=== PATIENT | male | born 1960 | race Caucasian/White ===

== ENCOUNTER 2022-02-06 00:41 | Day surgery (SDC) | payer OTHER, SELFPAY ==
[2022-02-02 12:15] VITALS: BMI 26.6
--- NOTE | 2022-02-05 17:02 | PM.HPGS ---
History of Present Illness History of Present Illness Consent: Risks, benefits, and alternatives have been discussed and questions answered. Patient agrees to proceed with procedure. Chief complaint: family hx of colon ca, neoplasm screening Narrative: Aiden Montgomery is a 61 year old male referred for colon cancer screening. His last examination was 5 years ago. His father had colon cancer when he was in his 60s. Review of Systems Review of Systems: All systems reviewed & are unremarkable except as noted in HPI and below PMFSH Past Medical History Medical History Family history of colon cancer Hyperlipidemia Hypertension Social History Social History Smoking status: Former smoker Tobacco type: cigarettes Alcohol intake: current Drinks per week: 3 Substance use: never Living arrangements: with family Gender identity (if verbalized by the patient): Male Sexual Orientation (if Verbalized by the Patient): Straight or Heterosexual Spiritual care concerns: No Agree to blood products: Yes Meds Home Medications and Allergies Home Medications Medication Instructions Recorded Confirmed Type candesartan 4 mg tablet 4 mg PO DAILY #90 tablet 12/09/21 02/06/22 Rx simvastatin 20 mg PO DAILY 02/02/22 02/06/22 History Allergies Allergy/AdvReac Type Severity Reaction Status Date / Time No Known Allergies Allergy Verified 02/06/22 07:39 Exam Resp: Auscultation: clear to auscultation bilaterally Cardio: Rate: regular rate Rhythm: regular rhythm GI: GI Palp: Yes Soft to palpation and No Tenderness to palpation present (GI) Assessment and Plan Assessment and plan (1) Colon cancer screening: Code(s): Z12.11 - Encounter for screening for malignant neoplasm of colon Status: Acute Assessment and Plan: Colonoscopy with possible biopsy or polypectomy or cautery or injection of substances.
[2022-02-06 07:40] VITALS: BP 121/86; PULSE 91; RESP 17; TEMP 36.8; O2SAT 98; BMI 27.3
[2022-02-06] MEDS: LACTATED RINGERS 1,000 ML 150 ML IV CONT (07:42)
--- NOTE | 2022-02-06 08:12 | WPDANESEPPF ---
Anes - Initial Pre Proc Eval Procedure: Operation Date: 02/06/22 09:00 Proposed Procedures p Screening Colonoscopy - Marco Mendes MD Date/Time: 02/06/22 08:12 Surgeon: Marco Mendes MD Pre Op Diagnosis: family hx of colon ca, neoplasm screening Patient Data Age: 61 Gender: M Height: 1.75 m Weight: 84 kg Last Vital Signs Temp 36.8 C 02/06/22 07:40 Pulse 91 02/06/22 07:40 Resp 17 02/06/22 07:40 BP 121/86 02/06/22 07:40 Pulse Ox 98 02/06/22 07:40 Allergies Allergy/AdvReac Type Severity Reaction Status Date / Time No Known Allergies Allergy Verified 02/06/22 07:39 Home Medications Medication Instructions Recorded Confirmed Type candesartan 4 mg tablet 4 mg PO DAILY #90 tablet 12/09/21 02/06/22 Rx simvastatin 20 mg PO DAILY 02/02/22 02/06/22 History Patient hx anesthesia problems: none Family hx anesthesia problems: none Results Review: All pre-operative results and documents have been reviewed as part of the pre-operative evaluation. [facility] Past Medical History Medical History Family history of colon cancer Hyperlipidemia Hypertension Social History Social History Smoking status: Former smoker Tobacco type: cigarettes Alcohol intake: current Drinks per week: 3 Substance use: never Living arrangements: with family Gender identity (if verbalized by the patient): Male Sexual Orientation (if Verbalized by the Patient): Straight or Heterosexual Spiritual care concerns: No Agree to blood products: Yes Anes - Eval Final PreProcedure Day of Procedure 02/06/22 08:12 Patient weight: overweight Heart: regular rate and rhythm Lungs: clear to auscultation Airway: Mallampati scale class II Neurological: alert and oriented Last oral intake: >/= 8 hours ASA classification: III Emergent: no Anesthetic plan: proceed Anesthesia type and monitoring: general GIVS and standard monitoring Results Review: All pre-operative results and documents have been reviewed as part of the pre-operative evaluation. Informed Consent: The patient's anesthetic plan and its attendant risks and benefits were discussed with the patient/family/POA. Questions were solicited and answers provided to the satisfaction of the patient/family/POA.
[2022-02-06 09:07] VITALS: BP 96/66; PULSE 74; RESP 19; O2SAT 96
[2022-02-06 09:17] VITALS: BP 99/68; PULSE 65; RESP 14; O2SAT 97
[2022-02-06 09:27] VITALS: BP 121/85; PULSE 64; RESP 20; O2SAT 97
== END 2022-02-06 09:36 | disposition home or self-care (01) ==
PROVIDERS: PCP Family Medicine; Visit Provider Internal Medicine Gastroenterology
PROC: 0DJD8ZZ Inspection of Lower Intestinal Tract, Via Natural or Artificial Opening Endoscopic (ICD-10-PCS; CPT 45378; principal; 2022-02-06 09:00)
DX: Z12.11 Encounter for screening for malignant neoplasm of colon (principal); K64.8 Other hemorrhoids; Z80.0 Family history of malignant neoplasm of digestive organs; I10 Essential (primary) hypertension; E78.5 Hyperlipidemia, unspecified; Z87.891 Personal history of nicotine dependence
CPT/HCPCS: 45378; J2001; J2704; J7120

== ENCOUNTER 2022-03-03 16:08 | Outpatient (CLI) | payer OTHER, SELFPAY ==
--- NOTE | ~2022-03-03 | XR_ITS ---
EXAMINATION: XR lumbar spine 2-3V DATE: 03/03/2022 16:34 INDICATION: Low back pain TECHNIQUE: Anteroposterior and lateral views of the lumbar spine, and cone-down lateral view of the l umbosacral junction were obtained. COMPARISON: None. FINDINGS: There is no fracture, dislocation, or subluxation. The vertebral body heights and intervert ebral disc space are maintained Small degenerative osteophytes project from the anterior endplates of multiple vertebral bodies. Calcified atherosclerosis is noted. IMPRESSION: 1. Mild lumbar spondylosis without acute findings. Reviewed, dictated and finalized at location A.
== END 2022-03-03 16:09 | disposition home or self-care (01) ==
LOC: ANHIMG 16:10
PROVIDERS: PCP Family Medicine; Visit Provider Family Medicine
DX: M47.896 Other spondylosis, lumbar region (principal)
CPT/HCPCS: 72100

== ENCOUNTER 2022-04-13 09:00 | Outpatient (RCR) | payer OTHER, SELFPAY ==
--- NOTE | 2022-03-09 09:10 | PTOPEVAL ---
PHYSICAL THERAPY INITIAL EVALUATION. Thank you for referring Aiden Montgomery to [facility] [place] The patient is scheduled to be seen for therapy? 2x/week for 4 weeks. Please review, sign, date and return this plan of care AWILDA. I agree with and certify that the following plan of care is medically necessary. Referring Physician Date Attending Provider: Cherelle Bennett DO *PT Outpatient Evaluation Start: 03/09/22 Evaluation Information Diagnosis Low back pain Onset 6 weeks Subjective Information Pt states he is having low Query Text:As Reported By Patient/ back pain that he is sure is Family sciatica. He states the muscles in his low back feel really tight and his gets numbness down his right leg. He states the sharp pains have subsided. He has tried multiple pain modalities without much relief. Pt is unlimited in the time he sits. He is most limited when bending over and lifting. Pain Assessment Lower Back Reported Pain Level 5 Pain Description Shooting,Tightness Pain Radiation Right Leg Pain Frequency Acute,Intermittent Lowest Pain Intensity 3 Greatest Pain Intensity 7 Pain Aggravating Factors Bending,Lifting Pain Relief Interventions Used By Heat,Ice,TENS Patient Lumbar ROM Lumbar Flexion (0-90) 30 Lumbar Flexion Active Mid Tian Lumbar Extension (0-40) 0 Lateral Flexion B lateral flexion able to Query Text:Active Hands to: achieve lateral knee joint line Lateral Rotation Right (0-45) 40 Lateral Rotation Left (0-45) 40 Lumbar ROM 50% of Normal Normal Lumbar Segmental Motion No Lumbar Comments Repeated flexion Lower Extremity Range of Motion General Lower Extremity Range of Motion WFL/Left,WFL/Right Lower Extremity Muscle Strength Testing General Lower Extremity Strength WFL/Left,WFL/Right Gross Lower Extremity Strength B LE grossly 5/5 B glute med 4-/5 Muscle Length Testing Two-Joint Hip Flexor Shortened Muscles Short (R) Rectus Femoris,Short (L) Rectus Femoris Piriformis w/Hip Flexion >90 Degrees (R) Mild Tightness,(L) Mild Tightness Left Hamstring Length -45 Right Hamstring Length -40 Posture Posture Evaluation View Posterior Thoracic Spine Posture Flattened
--- NOTE | 2022-03-23 13:00 | PTOPEVAL ---
PHYSICAL THERAPY PROGRESS REPORT. Thank you for referring Aiden Montgomery to [facility] [place].? The patient is scheduled to be seen in 1 month. Please review, sign, date and return this plan of care AWILDA. I agree with and certify that the following plan of care is medically necessary. Referring Physician Date Attending Provider: Cherelle Bennett DO Evaluation Information Diagnosis Low back pain Onset 6 weeks Subjective Information Pt states his back is now Query Text:As Reported By Patient/ localized to his lower back. Family He states he continues to have numbness into his legs. He states he can stand/slow walk for about 15-20 minutes before the numbness in his legs gets pretty intense. He declines less stabbing shocking pain. He states the numbness is his biggest concern. Pain Assessment Self Report Pain Assessment Lower Back Reported Pain Level 2 Pain Description Numbness,Soreness,Tightness, With Movement Pain Radiation Right Leg Greatest Pain Intensity 2 Cervical and Lumbar ROM Lumbar ROM Lumbar Flexion (0-90) 45 Lumbar Flexion Active Mid Tian,Ankle Lumbar Extension (0-40) 0 Lateral Flexion B lateral flexion able to Query Text:Active Hands to: achieve lateral knee joint line Lateral Rotation Right (0-45) 45 Lateral Rotation Left (0-45) 45 Lumbar ROM 50% of Normal Normal Lumbar Segmental Motion No Lumbar Comments Repeated flexion decreases symptoms Lower Extremity Range of Motion General Lower Extremity Range of Motion WFL/Left,WFL/Right Lower Extremity Muscle Strength Testing General Lower Extremity Strength WFL/Left,WFL/Right Gross Lower Extremity Strength B LE grossly 5/5 B glute med 4-/5 Muscle Length Testing Two-Joint Hip Flexor Shortened Muscles Short (R) Rectus Femoris,Short (L) Rectus Femoris Piriformis w/Hip Flexion >90 Degrees (R) Mild Tightness,(L) Mild Tightness Left Hamstring Length -35 Right Hamstring Length -35 Posture Posture Evaluation View Posterior Thoracic Spine Posture Flattened Lumbar Spine Posture Flattened Knee Posture (L) Genu Varus,(R) Genu Varus Palpation Assessment Palpation none reported Gait Assessment Other Gait Observations guarded gait, no trunk
--- NOTE | 2022-04-13 09:52 | PTOPEVAL ---
PHYSICAL THERAPY PROGRESS REPORT AND DISCHARGE SUMMARY. Thank you for referring Aiden Montgomery to [facility].? The patient is to be discharged from skilled physical therapy services at this time. Please review, sign, date and return this plan of care AWILDA. I agree with and certify that the following plan of care is medically necessary. Referring Physician Date Attending Provider: Cherelle Bennett, Evaluation Information Diagnosis Low back pain Onset 6 weeks Subjective Information Pt states when initially Query Text:As Reported By Patient/ starting therapy he was Family initially able to walk about 100 steps before he was limited by pain and needed to stop. Now, he is able to walk 1200 steps before his legs start to go numb, but at this point is still pain free. He states he has only had pain 2- 3 times in the last 2 weeks. Pain Assessment Self Report Self Report Pain Level 0 Lumbar ROM Lumbar Flexion (0-90) 60 Lumbar Flexion Active Ankle Lumbar Extension (0-40) 15* Lateral Flexion B lateral flexion able to Query Text:Active Hands to: achieve lateral knee joint line Lateral Rotation Right (0-45) 45 Lateral Rotation Left (0-45) 45 Lumbar ROM 75% of Normal Normal Lumbar Segmental Motion No Lumbar Comments Repeated flexion decreases symptoms Lower Extremity Range of Motion General Lower Extremity Range of Motion WFL/Left,WFL/Right Lower Extremity Muscle Strength Testing General Lower Extremity Strength WFL/Left,WFL/Right Gross Lower Extremity Strength B LE grossly 5/5 B glute med 4+/5 Muscle Length Testing Two-Joint Hip Flexor Shortened Muscles Short (R) Rectus Femoris,Short (L) Rectus Femoris Piriformis w/Hip Flexion >90 Degrees (R) Mild Tightness,(L) Mild Tightness Left Hamstring Length -30 Right Hamstring Length -30 Posture Thoracic Spine Posture Flattened Lumbar Spine Posture Flattened Knee Posture (L) Genu Varus,(R) Genu Varus Palpation Assessment Palpation Palpation none reported Special Test-Spine Crossed Straight Leg Raise Test Negative Right,Negative Left Slump Test Negative Right,Negative Left Gait Assessment Other Gait Observations minimal trunk rotation, minimal arm swing General Exercise General Exercises Exercise Description - reviewed and consolidate HEP
== END 2022-04-21 14:13 | disposition home or self-care (01) ==
LOC: ANHHIPT 09:00
PROVIDERS: PCP Family Medicine; Visit Provider Family Medicine
DX: M54.50 Low back pain, unspecified (principal)
CPT/HCPCS: 97110; 97112; 97140; 97161; 97530

== ENCOUNTER 2025-01-30 11:16 | Outpatient (CLI) | payer OTHER, SELFPAY ==
--- NOTE | 2025-01-30 11:23 | EST_ITS ---
Patient Info Name: Aiden Montgomery Age: 64 years : 1960 Gender: Male Ht: 68 in Wt: 180 lbs BSA: 2.00 m2 HR: 55 bpm BP: 138 / 76 mmHg Exam Date: 01/30/2025 11:38 AM Exam Location: [facility] Patient Status: Outpatient Admit Date: 01/30/2025 Staff Ordering Physician: Bethany Dee PA-C Attending Provider: Bethany Dee PA-C Exercise Technologist: ramesh barrientos Exercise Physician: Cyril Fisher DO Exam Type: CA stress test treadmill Study Info Indications R07.9 - Chest pain, unspecified A treadmill exercise stress test was performed. Summary 1. 1. Abnormal James exercise stress test for ischemic ST changes by ECG criteria. 2. 2. Reduced functional capacity, achieving 7 METs of workload. 3. 3. Hypertensive response to exercise. 4. 4. Appropriate HR response to exercise. 5. 5. Appropriate HR recovery at 1 minute post exercise. 6. 6. No imaging with stress testing. 7. 7. Patient informed of the above results. Protocol: James Stress ECG Details Stage: REST Duration (min): 0 min : 32 sec Speed (mph): 0.0 Grade (%): 0 HR (bpm): 55 SBP (mmHg): --- DBP (mmHg): --- METS: --- Stage: REST Duration (min): 5 min : 55 sec Speed (mph): 0.0 Grade (%): 0 HR (bpm): 55 SBP (mmHg): 203 DBP (mmHg): 71 METS: --- Stage: REST Duration (min): 6 min : 43 sec Speed (mph): 0.0 Grade (%): 0 HR (bpm): 54 SBP (mmHg): 138 DBP (mmHg): 76 METS: --- Stage: REST Duration (min): 13 min : 45 sec Speed (mph): 0.0 Grade (%): 0 HR (bpm): 62 SBP (mmHg): 138 DBP (mmHg): 76 METS: --- Stage: STAGE 1 Duration (min): 1 min : 0 sec Speed (mph): 1.7 Grade (%): 10 HR (bpm): 99 SBP (mmHg): 138 DBP (mmHg): 76 METS: --- Stage: STAGE 1 Duration (min): 2 min : 0 sec Speed (mph): 1.7 Grade (%): 10 HR (bpm): 112 SBP (mmHg): 138 DBP (mmHg): 76 METS: --- Stage: STAGE 1 Duration (min): 3 min : 0 sec Speed (mph): 1.7 Grade (%): 10 HR (bpm): 121 SBP (mmHg): 192 DBP (mmHg): 88 METS: --- Stage: STAGE 2 Duration (min): 1 min : 0 sec Speed (mph): 2.5 Grade (%): 12 HR (bpm): 132 SBP (mmHg): 192 DBP (mmHg): 88 METS: --- Stage: STAGE 2 Duration (min): 2 min : 0 sec Speed (mph): 2.5 Grade (%): 12 HR (bpm): 144 SBP (mmHg): 205 DBP (mmHg): 88 METS: --- Stage: STAGE 2 Duration (min): 2 min : 59 sec Speed (mph): 3.4 Grade (%): 14 HR (bpm): 149 SBP (mmHg): 205 DBP (mmHg): 88 METS: --- Stage: RECOVERY Duration (min): 1 min : 0 sec Speed (mph): 0.0 Grade (%): 0 HR (bpm): 120 SBP (mmHg): 215 DBP (mmHg): 73 METS: --- Stage: RECOVERY Duration (min): 2 min : 0 sec Speed (mph): 0.0 Grade (%): 0 HR (bpm): 91 SBP (mmHg): 215 DBP (mmHg): 73 METS: --- Stage: RECOVERY Duration (min): 3 min : 0 sec Speed (mph): 0.0 Grade (%): 0 HR (bpm): 81 SBP (mmHg): 198 DBP (mmHg): 76 METS: --- Stage: RECOVERY Duration (min): 3 min : 46 sec Speed (mph): 0.0 Grade (%): 0 HR (bpm): 80 SBP (mmHg): 198 DBP (mmHg): 76 METS: --- Rest HR: 62 bpm Peak HR: 149 bpm Rest Sys BP: 138 mmHg Peak Sys BP: 215 mmHg Max Pred HR: 157 bpm % Max Pred HR: 95 % Target HR: 133 bpm Max RPP: 32,035 bpm*mmHg Mcguire Score: -7 BP Response: Patient exhibited a hypertensive response with stress Termination Reason: Reached target heart rate or workload Cardiac Symptoms: Shortness of breath Max ST Seg Deviation: -2.60 mm Total Time: 6 min : 0 sec Rest Esteves BP: 76 mmHg Peak Esteves BP: 73 mmHg Angina Score: None Total METS: 7.1 Resting ECG Sinus rhythm. Stress ECG [address] depression in inferior leads and V3-V6. Arrhythmias 1 ventricular triplet. Report Signatures
--- OUTSIDE RECORDS SUMMARY | 2025-01-30 12:44 | XMS_ITS | Continuity of Care Document ---
Author Name [facility] Organization [facility] Care Team Providers [facility] Name Role Phone [facility] Unavailable Unavailable Social History Combined list of available smoking, tobacco, and other social history from [facility] and [facility] facilities. Social History Type Response Date Comment Source Tobacco smoking status NHIS CURRENT NON-TOBACCO USER-HX OF USE 07/19/2001 PT REPORTS HE QUIT SMOKING 6DAYS AGO. PT HAS A HX OF SMOKING 1PKG/DAY X 15 YRS. PT QUIT AT ONE POINT FOR 5 YRS THEN RESUME SMOKING. [facility]
--- OUTSIDE RECORDS SUMMARY | 2025-01-30 12:44 | XMS_ITS | Clinical Summary ---
Author Organization [facility] Address [facility] [place] [address] Care Team Providers Care Water Pollution Specialist Name Role Phone Non-Staff, Provider Primary Care Provider Rose lable Allergies No known active allergies Medications No known medications Encounters Date Type Department Care Team Description 01/24/2025 Telephone [facility], [address] [address] Bethany Dee PA-C Appointment Request 12/21/2024 3:46 PM INTERNAL AUDIT MANAGER - 12/21/2024 6:43 PM INTERNAL AUDIT MANAGER Emergency [facility] [place] [address] Nile Seaman MD Chest Pain Discharge Disposition: Home or Self Care (Routine Discharge) 12/21/2024 Travel from Last 3 Months Social History Tobacco Use Types Packs/Day Years Used Date Smoking Tobacco: Never Assessed Sex and Gender Information Value Date Recorded Sex Assigned at Male 12/21/2024 2:49 PM INTERNAL AUDIT MANAGER Legal Sex Male 1:00 PM INTERNAL AUDIT MANAGER Gender Identity Not on file Sexual Orientation Not on file Last Filed Vital Signs Vital Sign Reading Time Taken Comments Blood Pressure 148/88 12/21/2024 6:30 PM INTERNAL AUDIT MANAGER Pulse 57 12/21/2024 6:30 PM INTERNAL AUDIT MANAGER Temperature 36.7 C (98 F) 12/21/2024 2:45 PM INTERNAL AUDIT MANAGER Respiratory Rate 18 12/21/2024 6:30 PM INTERNAL AUDIT MANAGER Oxygen Saturation 98% 12/21/2024 6:30 PM INTERNAL AUDIT MANAGER Inhaled Oxygen Concentration - - Weight 81.6 kg (180 lb) 12/21/2024 2:45 PM INTERNAL AUDIT MANAGER Height 170.2 cm (5' 7 ) 12/21/2024 2:45 PM INTERNAL AUDIT MANAGER Body Mass Index 28.19 12/21/2024 2:45 PM INTERNAL AUDIT MANAGER Plan of Treatment Health Maintenance Due Date Last Done Comments Colorectal Cancer Screening Colonoscopy (10 Years) 1961 Annual Physical 1964 DTaP, Tdap and Td Vaccines ( 1 - Tdap) 1980 Zoster Vaccines (1 of 2) 2011 COVID-19 Vaccine (2 - 2023-2 5 season) 2024 10/10/2021 RSV Immunization or 60+ Years (1 - 1-dose 75+ series) 2036 Hepatitis C Completed 01/07/2022 Meningococcal B Vaccine Aged Out No l onger eligible based on patient's age to complete this topic Meningococcal Vaccine Aged Out No aby xochilt eligible based on patient's age to complete this topic Pneumococcal Vaccine: Pediat rics (0 to 5 Years) and At-Risk Patients (6 to 64 Years) Aged Out No longer eligi ble based on patient's age to complete this topic RSV Immunizations Under 20 Months Aged Out No longer eligible based on patient's age to complete this topic Procedures Procedure Name Priority Date/Time Associated Diagnosis Comments TROPONIN, QUANT STAT 12/21/2024 5:17 PM INTERNAL AUDIT MANAGER ECG 12-LEAD STAT 12/21/2024 5:13 PM INTERNAL AUDIT MANAGER XR CHEST PORTABLE STAT 12/21/2024 3:1 0 PM INTERNAL AUDIT MANAGER D-DIMER, QUANTITATIVE STAT 12/21/2024 2:46 PM INTERNAL AUDIT MANAGER TROPONIN, QUANT STAT 12/21/2024 2:46 PM INTERNAL AUDIT MANAGER COMPREHENSIVE METABOLIC PANEL STAT 12/21/2024 2:46 PM INTERNAL AUDIT MANAGER CBC W/DIFF AUTOMATED STAT 12/21/2024 2:46 PM INTERNAL AUDIT MANAGER ECG 12-LEAD Routine 12/21/2024 2:39 PM INTERNAL AUDIT MANAGER HC EIA QL HEPATITIS ABC B AG Routine 01/07/2022 1:38 PM INTERNAL AUDIT MANAGER Abnormal results of liver function studies from Last 3 Months or Most Recently Relevant to Health Maintenance Results * TROPONIN, QUANT (12/21/2024 5:17 PM INTERNAL AUDIT MANAGER) Only the most recent of2 resultswithin the time period is included. TROPONIN I HIGH SENSITIVITY 5 <79 ng/L 12/21/2024 5:47 PM INTERNAL AUDIT MANAGER [facility] Comment: HIGH DOSES OF BIOTIN, TROPONIN-SPECIFIC AUTOANTIBODIES, AND ANTIBODY THERAPY CONTAINING HAMA MAY INTERFERE WITH THIS TEST RESULT. CORRELATION TO CLINICAL HISTORY AND PRESENTATION RECOMMENDED. 12/21/2024 5:17 PM INTERNAL AUDIT MANAGER Nile Seaman MD LABORATORY Final Result [facility] [address] [place] [address], * ECG 12 lead (12/21/2024 5:13 PM INTERNAL AUDIT MANAGER) Only the most recent of2 resultswithin the time period is included. 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 : 1960 Requested By: NILE SEAMAN Order Number: [id number] Uma MD: Cheikh Gray Measurements Intervals Edgar Rate: 54 P: -13 WY: 161 QRS: 18 QRSD: 89 T: 32 QT: 407 QTc: 387 Interpretive Statements SINUS BRADYCARDIA Compared to ECG 12/21/2024 14:39:23 Sinus rhythm no longer present RNAL AUDIT MANAGER Procedure Note Cheikh Gray MD - 12/22/[address] Test Date: 2024-12-21 Pat Name: AIDEN MONTGOMERY Department: 41 Room: 404A 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: [id number] : 1960 Requested By: NILE SEAMAN Order Number: [id number] Reading MD: Cheikh Gray Measurements Intervals Edgar Rate: 54 P: -13 WY: 161 QRS: 18 QRSD: 89 T: 32 QT: 407 QTc: 387 Interpretive Statements SINUS BRADYCARDIA Compared to ECG 12/21/2024 14:39:23 Sinus rhythm no longer present RNAL AUDIT MANAGER Nile Seaman MD ECG ORDERABLES Final Result Performing Organization Address City/State/[facility] Co de Phone Number [facility] * XR CHEST PORTABLE (12/21/2024 3:10 PM INTERNAL AUDIT MANAGER) Anatomical Region Laterality Modality Chest Radiographic Mariana ging 12/21/2024 3:13 PM INTERNAL AUDIT MANAGER Impressions 12/21/2024 3:16 PM INTERNAL AUDIT MANAGER Impression: No acute findings. Referred By: Interpreted By: Malcom Mcgovern MD, 12/21/2024 3:13 PM Narrative 12/21/2024 3:16 PM INTERNAL AUDIT MANAGER [address] [address] Examination: Chest 1 view portable History: Chest pain DATE/TIME: 12/21/2024 2:44 PM Comparison: None Technique: AP upright portable view of the chest was obtained. Findings: Heart size, mediastinal contours and pulmonary vasculature are within normal limits. No pulmonary consolidation, pleural effusion or pneumothorax. No acute osseous abnormality. Procedure Note Malcom Mcgovern MD - 12/21/[address] [address] Examination: Chest 1 view portable History: Chest pain DATE/TIME: 12/21/2024 2:44 PM Comparison: None Technique: AP upright portable view of the chest was obtained. Findings: Heart size, mediastinal contours and pulmonary vasculature arewithin normal limits. No pulmonary consolidation, pleural effusion orpneumothorax. No acute osseous abnormality. Impression: No acute findings. Referred By: Interpreted By: Malcom Mcgovern MD, 12/21/2024 3:13 PM [facility] Final Resul t * (ABNORMAL) COMPREHENSIVE METABOLIC PANEL (12/21/2024 2:46 PM INTERNAL AUDIT MANAGER) GLUCOSE 87 70 - 99 MG/DL 12/21/2024 3:26 PM INTERNAL AUDIT MANAGER [facility] BUN 11 7 - 18 MG/DL 12/21/2024 3:26 PM INTERNAL AUDIT MANAGER [facility] CREATININE S/P/B 0.84 0.7 - 1.3 MG/DL 12/21/2024 3:26 PM INTERNAL AUDIT MANAGER [facility] SODIUM S/P/B 136 136 - 145 MMOL/L 12/21/2024 3:26 PM INTERNAL AUDIT MANAGER [facility] POTASSIUM S/P/B 4.0 3.5 - 5.1 MMOL/L 12/21/2024 3:26 PM INTERNAL AUDIT MANAGER [facility] CHLORIDE S/P/B 102 97 - 115 MMOL/L 12/21/2024 3:26 PM INTERNAL AUDIT MANAGER [facility] CO2 31.0 21 - 32 MMOL/L 12/21/2024 3:26 PM INTERNAL AUDIT MANAGER [facility] CALCIUM S/P/B 9.3 8.5 - 10.1 MG/DL 12/21/2024 3:26 PM [facility] BILIRUBIN TOTAL S/P/B 0.6 0.2 - 1.2 MG/DL 12/21/2024 3:26 PM [facility] Comment: THIS ASSAY IS NOT RECOMMENDED FOR PATIENTS UNDERGOING TREATMENT WITH ELTROMBOPAG DUE TO THE POTENTIAL FOR FALSELY ELEVATED RESULTS. TOTAL PROTEIN S/P/B 7.4 6.4 - 8.2 G/DL 12/21/2024 3:26 PM [facility] ALBUMIN S/P/B 4.0 3.4 - 5.0 G/DL 12/21/2024 3:26 PM [facility] AST 29 15 - 37 U/L 12/21/2024 3:26 PM [facility] ALT 76(H) 16 - 60 U/L 12/21/2024 3:26 PM [facility] ALKALINE PHOSPHATASE S/P/B 54 50 - 136 U/L 12/21/2024 3:26 PM [facility] ANION GAP 3.0 2 - 10 MMOL/L 12/21/2024 3:26 PM [facility] BUN CREATININE RATIO 13.1 6 - 26 12/21/2024 3:26 PM [facility] A/G RATIO 1.2 1.0 - 2.0 RATIO 12/21/2024 3:26 PM [facility] GFR ESTIMATE >90 >90 ML/MIN/1.7 3 M2 12/21/2024 3:26 PM [facility] Comment: NOTE: eGFR is not calculated for patients <18 years of age or gender unknown. This is an estimated GFR calculation using the new CKD EPI creatinine equation without race and so does not require a correction factor for race. This estimated GFR should not be used for calculating drug doses. 12/21/2024 2:46 PM INTERNAL AUDIT MANAGER [facility] Final Resul t [facility] [address] [place] [address], [place] [phone] * D-DIMER, QUANTITATIVE (12/21/2024 2:46 PM INTERNAL AUDIT MANAGER) Pathologist [facility] D-DIMER 356 0 - 500 ng{FEU}/mL 12/21/2024 3:25 PM INTERNAL AUDIT MANAGER [facility] Comment: D-Dimer values less than or equal to 500 ng/mL FEU have a negative predictive value of >95% for exclusion of deep vein thrombosis and pulmonary embolism. In patients over 50 (who tend to have higher normal baseline D-Dimer values), recent studies suggest age-adjusted D-Dimer cutoff values (calculated as: age [years] x 10 ng/mL) result in equivalent outcomes and no additional false negative findings. 12/21/2024 2:46 PM INTERNAL AUDIT MANAGER Wis[facility] Final Resul t Performing Organization Address [facility] Co de Phone Number [facility] [address] [place] [address], [place] [phone] * CBC W/DIFF AUTOMATED (12/21/2024 2:46 PM INTERNAL AUDIT MANAGER) Pathologist [facility] WBC 5.83 4.5 - 11.0 x10'3/uL 12/21/2024 3:00 PM INTERNAL AUDIT MANAGER [facility] RBC 5.09 4.70 - 6.10 x10'6/uL 12/21/2024 3:00 PM INTERNAL AUDIT MANAGER [facility] HGB 15.3 14.0 - 18.0 G/DL 12/21/2024 3:00 PM INTERNAL AUDIT MANAGER [facility] HCT 44.3 43.0 - 54.0 % 12/21/2024 3:00 PM [facility] MCV 87.0 80.0 - 94.0 FL 12/21/2024 3:00 PM [facility] MCH 30.1 27.0 - 31.0 PG 12/21/2024 3:00 PM [facility] MCHC 34.5 32.0 - 36.0 G/DL 12/21/2024 3:00 PM [facility] RDW 12.4 11.5 - 14.5 % 12/21/2024 3:00 PM [facility] PLT 295 130 - 400 x10'3/uL 12/21/2024 3:00 PM [facility] MPV 9.6 9.3 - 12.2 FL 12/21/2024 3:00 PM [facility] DIFFERENTIAL TYPE AUTOMATED DIFFERENTIAL 12/21/2024 3:00 PM [facility] NEUTROPHILS % 49.2 % 12/21/2024 3:00 PM [facility] LYMPHOCYTES % 36.4 % 12/21/2024 3:00 PM [facility] MONOCYTES % 8.9 % 12/21/2024 3:00 PM [facility] EOSINOPHILS 4.6 % 12/21/2024 3:00 PM [facility] BASOPHILS 0.7 % 12/21/2024 3:00 PM [facility] IMMATURE GRANS % 0.2 % 12/21/19 3:00 PM [facility] ABS. NEUTROPHILS 2.87 1.80 - 7.70 x10'3/uL 12/21/2024 3:00 PM [facility] ABS. LYMPHOCYTES 2.12 1.00 - 4.80 x10'3/uL 12/21/2024 3:00 PM INTERNAL AUDIT MANAGER [facility] ABS. MONOCYTES 0.52 0.30 - 0.82 x10'3/uL 12/21/2024 3:00 PM INTERNAL AUDIT MANAGER [facility] ABS. EOSINOPHILS 0.27 0.04 - 0.54 x10'3/uL 12/21/2024 3:00 PM INTERNAL AUDIT MANAGER [facility] ABS. BASOPHILS 0.04 0.01 - 0.08 x10'3/uL 12/21/2024 3:00 PM INTERNAL AUDIT MANAGER [facility] ABS. IMMATURE GRANULOCYTES 0.01 0.00 - 0.49 x10'3/uL 12/21/2024 3:00 PM INTERNAL AUDIT MANAGER [facility] 12/21/2024 2:46 PM INTERNAL AUDIT MANAGER Wis[facility] Final Resul t [facility] [address] [place] [address], * HEPATITIS A,B,& C (01/07/2022 1:38 PM INTERNAL AUDIT MANAGER) HEPATITIS B SURFACE AG NON-REACTI VE NON-REACTI VE 01/07/2022 4:55 PM INTERNAL AUDIT MANAGER [facility] HEP B CORE TOTAL AB NON-REACTI VE NON-REACTI VE 01/07/2022 4:55 PM INTERNAL AUDIT MANAGER [facility] HEP B SURFACE AB NON-REACTI VE 01/07/2022 4:55 PM INTERNAL AUDIT MANAGER [facility] HAV IGM NON-REACTI VE NON-REACTI VE 01/07/2022 4:55 PM INTERNAL AUDIT MANAGER [facility] HEPATITIS C AB NON-REACTI VE NON-REACTI VE 01/07/2022 4:55 PM INTERNAL AUDIT MANAGER [facility] 01/07/2022 1:38 PM INTERNAL AUDIT MANAGER Cherelle Bennett DO LABORATORY Final Resul t [facility] [address] [facility] [place] [address], from Last 3 Months or Most Recently Relevant to Health Maintenance Insurance Care Teams Water Pollution Specialist Relationship Specialty Start Date End Date Non-Staff, Provider PCP - General UNKNOWN PHYSICIAN SPECIALTY 12/21/24
== END 2025-01-30 11:17 | disposition home or self-care (01) ==
PROVIDERS: PCP Physician Assistant Medical; Visit Provider Physician Assistant Medical
DX: R07.9 Chest pain, unspecified (principal)
CPT/HCPCS: 93017